=== PATIENT | male | born 1985 | race Caucasian/White ===

== ENCOUNTER 2016-12-09 08:03 | Emergency (ER) | payer OTHER ==
[~2016-12-09] VITALS: Ht 190.5 cm; Wt 100.0 kg
[2016-12-09 08:07] VITALS: BP 162/99; PULSE 78; RESP 16; O2SAT 100
[2016-12-09] MEDS ORDERED: 0.9% Sodium Chloride 1,000 ML IV ONE (08:25)
--- NOTE | 2016-12-09 08:37 | ED.REPORT ---
HPI-General Illness Date of Service Dec 09, 2016 ED Provider: Nicki Brody MD The patient is a 31 year old male with no pertinent medical history, who presents to the emergency department complaining of palpitations that have been intermittent over the last week. He describes the palpitations as if his heart is fluttering. The episodes last for about 15-30 seconds at a time. With the episodes he also experiences lightheadedness, dizziness, nausea, and shortness of breaths. He denies chest pain, back pain, lower extremity swelling, weight changes, vomiting, headache, cough, fever or chills. He has not had similar symptoms in the past. He smokes marijuana occasionally. He does not take any prescribed medications. Nursing Notes Stated Complaint: HEART PALPITATIONS Chief Complaint: Dysrhythmia/Cardiac Nursing Notes Reviewed: Yes Allergies: Coded Allergies: No Known Allergies (Unverified , 12/09/16) General Time Seen by MD: 08:20 Chief Complaint Other (palpitations) Hx Obtained From: Patient Arrived By: Walk-in Sudden in Onset?: Yes Onset Occurred: 1 week ago Symptom Duration: Intermittent Severity: Current: No pain currently Severity: Maximum: No pain Recent Healthcare: No recent doctor visit, No recent hospitalization Similar Sx Previous: No Past Medical History Past Medical History None Family History Noncontributory Smoking History Never Smoker Social History Lives in [place] Drug Use: THC Ambulatory Status Independent Review of Systems -weight changed Full Review of Systems Constitutional: Denies: Fever Ears / Nose / Throat: Denies: Nasal congestion Respiratory: Reports: Shortness of breath, Denies: Non-productive cough Cardiovascular: Reports: Chest pain GI: Reports: Nausea, Denies: Abdominal pain, Vomiting Musculoskeletal: Denies: Back pain, Extremity pain, Extremity swelling Neurologic: Reports: Dizziness, Lightheaded, Denies: Headache Complete sys rev & neg: except as marked. Physical Exam Vital Signs Vital Signs Date Time Temp Pulse Resp B/P Pulse Ox O2 Delivery O2 Flow Rate FiO2 12/09/16 10:32 71 12 135/81 99 Room Air 12/09/16 09:57 71 12 135/81 99 Room Air 12/09/16 09:15 75 12 143/85 100 Room Air 12/09/16 08:07 36. 78 16 162/99 100 Room Air Initial VS: Reviewed, Vital signs abnormal Head / Eyes: Atraumatic, Normocephalic, PERRL ENT: Mucous membranes moist, Conjunctiva normal, No scleral icterus Neck: Supple, Non-tender, Full range of motion Respiratory: Breath sounds normal, Clear to auscultation, No respiratory distress Cardiovascular: Regular rate & rhythm, Heart sounds normal, Intact distal pulses Abdomen / GI: Soft, Non-tender, No guarding, No rebound, No distention Lymphatic: No lymphadenopathy Extremities: Vascular intact, Neuro intact, No swelling, No tenderness Skin: Warm, Dry, No cyanosis Neurologic: Alert, Oriented, Nonfocal Psychiatric: Mood/affect normal, Behavior normal, Normal thought content General/Constitutional: Awake, Alert, Not toxic appearing Lower Extremity / Pelvis / MS: No swelling, Non-tender, Neurologic intact, Vascular intact, No edema No calf tenderness Interpretation & Diagnostics Lab Results Interpretation Result Diagram: 12/09/16 0840 12/09/16 0840 Test 12/09/16 08:40 12/09/16 09:00 White Blood Count 5.8th/mm3 (3.8-10.1) Red Blood Count 4.83mil/mm3 (4.40-5.80) Hemoglobin 15.2g/dL (13.8-17.2) Hematocrit 43.4% (41.0-50.0) Mean Corpuscular Volume 89.9fL (81-100) Mean Corpuscular Hemoglobin 31.5pg (27.0-35.0) Mean Corpuscular Hemoglobin Concent 35.0% (32.0-37.0) Red Cell Distribution Width 11.9% (12.3-15.4) Platelet Count 242bil/L (150-400) Neutrophils (%) (Auto) 43.7% (40-74) Lymphocytes (%) (Auto) 44.0% (14-46) Monocytes (%) (Auto) 8.6% (4-12) Eosinophils (%) (Auto) 2.9% (0-5) Basophils (%) (Auto) 0.5% (0-3) Sodium Level 143mEq/L (134-144) Potassium Level 4.2mEq/L (3.5-5.2) Chloride Level 101mEq/L (97-108) Carbon Dioxide Level 28mmol/L (18-29) Blood Urea Nitrogen 13mg/dL (6-20) Creatinine 0.83mg/dL (0.76-1.27) Estimat Glomerular Filtration Rate 116mL/min (>59) Glucose Level 139mg/dL (60-99) Calcium Level 9.9mg/dL (8.5-10.1) Magnesium Level 1.8mg/dL (1.6-2.6) Thyroid Stimulating Hormone (TSH) 3.310uIU/mL (0.450-4.500) Hold Urine Received (Received) ECG Interpretation ECG Interpretation: Normal sinus rhythm with a rate of 72 Time: 08:42 Interpreted by: ED physician X-Ray Chest Interpretation Chest Xray Interpretation: IMPRESSION: No acute cardiopulmonary disease. Dictated by: Owen Aleman RRPaul Interpreted: Jose Doran MD on 12/09/2016 at 9:18 Interpretation / Wet Read by: Interpret - Radiologist Re-Eval/Medical Decision Med Decision/Clinical Course The patient complained of palpitations, he did not have any abnormalities here. He was feeling back to normal upon discharge. Pressure was a differential diagnoses considered were electrolyte abnormality, pneumonia, dehydration, dysrhythmia, and pulmonary embolus. Time of Eval: 10:01 Re-Evaluation/Progress Note: Rechecked the patient. Discussed results, diagnosis, and plan for discharge. All questions were addressed. Counseled Regarding: Diagnosis, Lab results, Need for follow-up, When/why to return to ED Discharge & Departure Primary Impression: Palpitations Disposition: Home Discharge Condition All VS Reviewed: Yes Condition: Stable Additional Instructions: Thank you for entrusting us with your care today. Your results are reassuring. Followup with your regular doctor. You will likely need a Holter monitor. Seek care for any new or worsening symptoms. Referrals: NOPCP (PCP) [facility] Attestation Portions of this note were transcribed by Nunu Ndiaye. I, Dr. Brody personally performed the history, physical exam and medical decision-making; I reviewed and confirmed the accuracy of the information in the transcribed note. Signed by: Azucena Liu, 12/09/2016 at 1010. Nicki Brody MD Dec 09, 2016 08:37 Nunu Ndiaye Dec 09, 2016 08:40
[2016-12-09 08:53] LABS: BASOPHILS % (AUTO) 0.5 % (0-3); EOSINOPHILS % (AUTO) 2.9 % (0-5); MONOCYTES % (AUTO) 8.6 % (4-12); Mean Corpuscular Hemoglobin 31.5 pg (27.0-35.0); Mean Corpuscular Volume 89.9 fL (81-100); NEUTROPHILS % (AUTO) 43.7 % (40-74); Platelet Count 242 bil/L (150-400)
[2016-12-09 09:15] VITALS: BP 143/85; PULSE 75; RESP 12; O2SAT 100
[2016-12-09 09:19] LABS: Magnesium 1.8 mg/dL (1.6-2.6)
--- NOTE | 2016-12-09 09:19 | DRSVH ---
PROCEDURE: X-RAY CHEST ONE VIEW, PORTABLE ([id number]) INDICATIONS: palpitations TECHNIQUE: One view of the chest was acquired. COMPARISON: None. FINDINGS: Surgical changes and devices: None. Lungs and pleura: No pleural effusions or pneumothorax. Lungs are clear. Mediastinum: Mediastinal contours appear normal. Heart size is normal. Bones and chest wall: No suspicious bony lesions. Overlying soft tissues appear unremarkable. IMPRESSION: No acute cardiopulmonary disease. Dictated by: Owen Aleman [facility] Interpreted: Jose Doran MD on 12/09/2016 at 9:18 Transcribed by: MCKINLEY on 12/09/2016 at 9:18 Approved by: Jose Doran M.D. on 12/09/2016 at 13:05
[2016-12-09 09:57] VITALS: BP 135/81; PULSE 71; RESP 12; O2SAT 99
[2016-12-09 10:32] VITALS: BP 135/81; PULSE 71; RESP 12; O2SAT 99
== END 2016-12-09 10:32 | disposition home or self-care (01) ==
LOC: SED 08:03
DX: R00.2 Palpitations (principal); R42 Dizziness and giddiness; R11.0 Nausea; R06.02 Shortness of breath; F12.10 Cannabis abuse, uncomplicated
CPT/HCPCS: 36415; 71010; 80048; 83735; 84443; 85025; 93005; 96360; 99285; J7030